=== PATIENT | female | born 1985 | race Caucasian/White ===

== ENCOUNTER → 2020-10-28 | Outpatient (CLI) | payer BC ==
[~2020-10-28] MED LIST: FRS325T PO; IBP600T1 PO; PREN1TAB39 PO
--- NOTE | 2020-10-28 17:56 | Diagnostic Imaging Report ---
PROCEDURE: US OB SINGLE FETUS <14 WKS. TECHNIQUE: Multiple real-time grayscale images were obtained over the gravid uterus in various projections. INDICATION: dating. COMPARISON: None. TECHNIQUE: Transpelvic sonogram was performed. FINDINGS: There is a single, live intrauterine with a crown-rump length measuring 2.48 cm, which is consistent with a 9 week and 2 day fetus. heart rate was documented at 174 beats per minute. anatomy is not well seen at this early state of gestation. No adnexal masses are identified. The bilateral ovaries were not visualized secondary to the gravid uterus and adjacent overlying bowel. No abnormal adnexal mass lesion was seen. IMPRESSION: Single, live intrauterine at 9 weeks and 2 days. Estimated due date is 05/31/2021. These are consistent with the clinical dates. No abnormality is seen at this time. Recommend a full anatomic survey at 18-20 weeks gestational age. Dictated by: Dictated on workstation # [id number]
== END ==
LOC: RAD 14:58
PROVIDERS: ATTEND Obstetrics & Gynecology
DX: Z34.91 Encounter for supervision of normal pregnancy, unspecified, first trimester (principal); Z3A.09 9 weeks gestation of pregnancy
CPT/HCPCS: 76801

== ENCOUNTER → 2021-01-10 | Outpatient (CLI) | payer BC ==
--- NOTE | 2021-01-10 17:10 | Diagnostic Imaging Report ---
INDICATION: 35-year-old female, 19 weeks 5 days TECHNIQUE: Multiple real-time grayscale images were obtained over the gravid uterus. COMPARISON: 10/28/2020 FINDINGS: There is a single live intrauterine gestation in cephalic presentation. The placenta is posterior, without evidence of previa. The cervix is partially shadowed out, but measures 5.2 cm in length and there is no evidence of funneling or endocervical fluid. heart rate measures 136 BPM. The amniotic fluid appears subjectively normal, with a vertical pocket seen measuring 5 cm. A four-chamber heart is seen. The cord insertion is seen. 2 umbilical arteries are demonstrated, consistent with a three-vessel cord. The bladder is seen. Bilateral upper extremities are seen. Bilateral lower extremities are seen. The kidneys are seen. The cerebellum and cisterna magna are seen. The upper and lower spine is seen. The right and left ventricular outflow tracks are seen. The lateral ventricles are seen. The profile is seen. Biometrical measurements are as follows: Biparietal 4.31 cm, age 19 weeks 1 days. Head circumference 16.85 cm, age 19 weeks 4 days. Abdominal circumference 15.84 cm, age 21 weeks 0 days. Femur length 3.40 cm, age 20 weeks 5 days. Sonographic estimate age: 20 weeks 1 days. Sonographic estimated date of delivery: 05/29/21. Estimated Weight: 367 gm (+/- 54 gm). LMP percentile: 91%. heart rate: 136 beats per minute. number: 1 of 1. IMPRESSION: 1. Single live intrauterine gestation measuring at 20 weeks and 1 day, which is within range of the clinical dates. 2. No abnormality seen on anatomic survey. Dictated by: Dictated on workstation # [id number]
== END ==
LOC: RAD 14:45
PROVIDERS: ATTEND Obstetrics & Gynecology
DX: Z34.92 Encounter for supervision of normal pregnancy, unspecified, second trimester (principal); Z3A.20 20 weeks gestation of pregnancy
CPT/HCPCS: 76805

== ENCOUNTER 2021-05-26 02:40 | Inpatient (IN) | payer BC, OTHER ==
[2021-05-26] VITALS (47 sets, daily range): BP systolic 92–155; BP diastolic 51–91
[2021-05-26] MEDS ORDERED: D5 LR IV SOLUTION 1,000 ML IV ONE (07:42)
[2021-05-26] MEDS ORDERED: OXYTOCIN PRE-MIX DRIP 500 ML IV SCH ×2 (07:45→16:15)
[2021-05-26] MEDS ORDERED: MINERAL OIL 30 ML OIL TOP PRN (07:45)
[2021-05-26] MEDS: D5 LR IV SOLUTION 1,000 ML IV SCH ×2 (07:58→15:35)
--- NOTE | 2021-05-26 08:15 | History & Physical-OB/GYN ---
[facility] 05/26/21 0815: OB - Chief Complaint & HPI Date/Time Date of Admission: Date of Admission: May 26, 2021 at 07:05 Date seen by a Provider: May 26, 2021 Time Seen by a Provider: 08:10 Chief Complaint/History OB-Reason for Admission/Chief: Induction of Labor Hx : 3 Hx Para: 2 Gestational Age in Weeks: 39 Indication for induction: other (Maternal Age) Allergies and Home Medications Allergies Coded Allergies: No Known Drug Allergies (Verified Allergy, Unknown, 07/05/07) Patient Home Medication List Home Medication List Reviewed: Yes Ferrous Sulfate (Iron) 325 Mg Tablet, 1 TAB PO DAILY, (Reported) Entered as Reported by: NEO KABA on 11/19/10 105 Vits W-Ca,Fe,Fa(<1MG) () 1 Each Tablet, 1 EACH PO DAILY, (Reported) Entered as Reported by: NEO KABA on 11/19/10 105 Discontinued Medications Ibuprofen (Motrin) 600 Mg Tab, 600 MG PO Q6H, (Reported) Entered as Reported by: NEO KABA on 11/19/10 105 Last Action: Discontinued OB - History Hx of Present Care: Yes Obstetrical History Hx : 3 Hx Para: 2 Hx # Term Pregnancies: 3 Number of Living Children: 2 Hx Termination: No Hx Multiple Gestation: No Hx Stillbirth: No Hx Complication: No Hx Induced Hypertens: Yes (both pregnancies) Hx Maternal Gestational Diabet: No Delivery History Hx Dystocia: No Hx Large For Gestational Age I: No Hx Small for Gestational Age I: No Hx Section: No Hx Vaginal Delivery Post C-Sec: No Hx Blood Disorders: No AREN GILLESPIE DO 05/26/21 0913: OB - Chief Complaint & HPI Chief Complaint/History Indication for induction: other (Maternal Age; gestational hypertension) Admission Nurse Assessment Rev: Yes History of Labs O+/- Rub NI HepBAg - HIV - GBS - VDRL NR Allergies and Home Medications Allergies Coded Allergies: No Known Drug Allergies (Verified Allergy, Unknown, 07/05/07) Patient Home Medication List Home Medication List Reviewed: Yes Ferrous Sulfate (Iron) 325 Mg Tablet, 1 TAB PO DAILY, (Reported) Entered as Reported by: NEO KABA on 11/19/10 1059 Vits W-Ca,Fe,Fa(<1MG) () 1 Each Tablet, 1 EACH PO DAILY, (Reported) Entered as Reported by: NEO KABA on 11/19/10 1059 Discontinued Medications Ibuprofen (Motrin) 600 Mg Tab, 600 MG PO Q6H, (Reported) Entered as Reported by: NEO KABA on 11/19/10 1059 Last Action: Discontinued OB - History Hx of Present Ultrasounds: Normal mid trimester US Obstetrical Complications: Gestational Hypertension Medical Complications: None Information Induced Hypertension: Yes Maternal Gestational Diabetes: No Hemorrhage: No Obstetrical History Hx Induced Hypertens: Yes Patient Past Medical History denies Social History/Family History Alcohol Use: Denies Use Recreational Drug Use: No Smoking Cessation: Never smoker Immunizations Tetanus Booster (TDap): Less than 5yrs (03/03/2022) Rubella: not immune RPR/VDRL: Negative GBS Status: Negative HBsAG: Negative OB - Admission Exam Physical Exam Heart: Rhythm Normal Lungs: Clear Abdomen: Gravid Extremities: Normal Reflexes: Normal Cervical Dilatation: 4cm Effacement: 50% Station: -2 Membranes: Intact Heart Rate: 140's Accelerations: Accelerations Present Decelerations: No Decelerations Short Term Variability: Present Long-Term Variability: Average (6-25) Contractions on Admission: 6-10 Minutes Apart OB - Assessment/Plan/Diagnosis Assessment Assessment: induction of labor Admission Dx labor Admission Status: Inpatient Order (span 2 midnights) Reason for Inpatient Admission: labor Plan Induction Method: AROM Other Plan Anticipate treat BP accordingly Supervisory-Addendum Brief Verification & Attestation Participated in pt care: history, physical Personally performed: exam Care discussed with: Medical Student Procedures: n/a I have seen and examined the patient and agree with assessment. [facility]AL[facility] STUDHARIKA May 26, 2021 08:15 AREN GILLESPIE DO May 26, 2021 09:13
[2021-05-26 08:49] LABS: BASOPHILS % (AUTO) 0 % (0-10); EOSINOPHILS # (AUTO) 0.1 10^3/uL (0.0-0.3); EOSINOPHILS % (AUTO) 1 % (0-10); HEMATOCRIT 33 % (35-52); HEMOGLOBIN 10.9 g/dL (11.5-16.0); LYMPHOCYTES # (AUTO) 1.6 10^3/uL (1.0-4.0); LYMPHOCYTES % (AUTO) 15 % (12-44); MEAN CORPUSCULAR HEMOGLOBIN 28 pg (25-34); MEAN CORPUSCULAR HGB CONC 33 g/dL (32-36); MEAN CORPUSCULAR VOLUME 85 fL (80-99); MEAN PLATELET VOLUME 10.8 fL (9.0-12.2); MONOCYTES # (AUTO) 0.5 10^3/uL (0.0-1.0); MONOCYTES % (AUTO) 5 % (0-12); NEUTROPHILS # (AUTO) 7.9 10^3/uL (1.8-7.8); NEUTROPHILS % (AUTO) 77 % (42-75); PLATELET COUNT 248 10^3/uL (130-400); WHITE BLOOD COUNT 10.3 10^3/uL (4.3-11.0)
[2021-05-26 09:07] LABS: BILIRUBIN,URINE NEGATIVE (NEGATIVE); CLARITY,URINE CLEAR; COLOR,URINE DARK YELLOW; GLUCOSE, URINE (UA) NEGATIVE (NEGATIVE); KETONES,URINE TRACE (NEGATIVE); LEUKOCYTE ESTERASE ,URINE NEGATIVE (NEGATIVE); NITRITE,URINE NEGATIVE (NEGATIVE); PROTEIN,URINE NEGATIVE (NEGATIVE)
[2021-05-26] MEDS: LACTATED RINGERS 1,000 ML IV SCH ×2 (09:21→11:23)
[2021-05-26 09:27] LABS: BACTERIA,URINE TRACE /HPF; SQUAMOUS EPITHELIAL CELL,UR 0-2 /HPF
[2021-05-26] MEDS ORDERED: fentaNYL 2 mcg/ml BUPIVA 0.125 100 ML ONE (10:31)
[2021-05-26] MEDS ORDERED: LACTATED RINGERS 1,000 ML IV ONE (10:32)
[2021-05-26] MEDS ORDERED: fentaNYL INJ 100 MCG/2 ML AMP ONE (10:34)
[2021-05-26] MEDS ORDERED: BUPIVACAINE 0.25% 10 ML (SENSORCAINE) VIAL ONE (10:35)
[2021-05-26] MEDS ORDERED: ONDANSETRON 4 MG/2 ML (SDV) Z0FRAN IV PRN (11:00)
[2021-05-26] MEDS ORDERED: diphenhydrAMINE 50 MG/ML INJ (BENADRYL) IV PRN (11:00)
[2021-05-26] MEDS ORDERED: NALOXONE 0.4 MG/ML 1 ML (NARCAN) VIAL IV PRN ×2 (11:00→16:15)
[2021-05-26] MEDS ORDERED: EPIDURAL (fentaNYL 2 MCG/ML BUPIVA 0.125%)100 ML BAG EPI PRN (11:00)
[2021-05-26] MEDS ORDERED: CATHETER FLUSH 10 ML SYR IV SCH ×2 (14:00→22:00)
[2021-05-26] MEDS ORDERED: MINERAL OIL CONCENTRATE 99.9% 15 ML UDC ONE (15:29)
--- NOTE | 2021-05-26 16:04 | OB Labor & Delivery Record ---
Vag Delivery Note Vag Delivery Note Date of Delivery: 05/26/21 Preoperative Diagnosis: Meka Anderson is a 35 /Para 3 / 2,Gestational Age 39 weeks, gestational hypertension Postoperative Diagnosis: Same Surgeon: AREN GILLESPIE Cabin Agent: Royal Coombs MS III Anesthesia: epidural Delivery Type: Findings: Viable male infant, apgars 6/9, weight 7#8 ounces Lacerations: 1st deg, periurethral Intact placenta with 3 vessel cord. No nuchal cord, body cord or shoulder dystocia. There was a true knot in the cord Estimated Blood Loss: 100 ml Complications: None Condition: Stable Description of Procedure: The patient is a 35 year old female who presented for induction of labor. BP on admission was 150s/90s. She was admitted and informed consent was obtained. Her labor course was remarkable for AROM (4+ cm on admission) and pitocin augmentation. She progressed to complete dilatation and began to push. She was then set up for delivery. The infant's head was delivered atraumatically in the MARIA LUISA position. The shoulders and remainder of the 's body were then delivered without difficulty. Upon delivery, the head was held below the level of the perineum and the mouth and nares were bulb suctioned. The cord was doubly clamped and cut and the infant was handed off to the pediatric staff. An intact placenta with 3-vessel cord delivered via Nicholas and there was found to be minimal bleeding.~ Vigorous fundal massage was performed and the fundus was found to be firm. IV oxytocin was given. Examination of the vagina and perineum revealed a 1st degree laceration and a periurethral laceration repaired in the usual fashion with 3-0 vicryl suture. Following the repair, sponge, instrument and needle counts were correct. Mom and baby were both in stable condition in the labor suite. Vitals - Labs Vital Signs - I&O Vital Signs Date Time Temp Pulse Resp B/P (MAP) Pulse Ox O2 Delivery O2 Flow Rate FiO2 05/26/21 13:45 95 18 116/73 (87) 92 Room Air 05/26/21 13:30 88 18 116/73 (87) 100 Room Air 05/26/21 13:15 36.0 93 18 126/71 (89) 99 Room Air 05/26/21 13:00 94 18 129/66 (87) 100 Room Air 05/26/21 12:45 88 18 115/67 (83) 100 Room Air 05/26/21 12:30 110 18 113/63 (80) 96 Room Air 05/26/21 12:15 105 18 115/64 (81) 99 Room Air 05/26/21 12:00 90 18 119/68 (85) 98 Room Air 05/26/21 11:45 99 18 124/66 (85) 99 Room Air 05/26/21 11:30 87 18 130/65 (86) 100 Room Air 05/26/21 11:15 90 18 132/73 (92) 100 Room Air 05/26/21 11:10 93 59 130/72 (91) 100 Room Air 05/26/21 11:05 103 59 123/72 (89) 99 Room Air 05/26/21 11:03 80 59 112/67 (82) Room Air 05/26/21 11:02 105 59 105/59 (74) Room Air 05/26/21 11:01 76 18 94/54 (67) 05/26/21 11:00 64 18 95/51 (66) Room Air 05/26/21 10:58 64 18 92/53 (66) 99 Room Air 05/26/21 10:54 116 18 140/65 (90) 99 Room Air 05/26/21 10:51 37.0 93 18 129/65 (86) 96 Room Air 05/26/21 10:47 91 18 141/73 (95) 98 Room Air 05/26/21 10:45 90 18 98 Room Air 05/26/21 10:44 86 18 145/81 (102) 98 Room Air 05/26/21 10:41 89 18 152/83 (106) 99 Room Air 05/26/21 10:39 86 18 145/82 (103) 98 Room Air 05/26/21 10:36 86 18 146/87 (106) 98 Room Air 05/26/21 10:35 18 Room Air 05/26/21 10:30 18 Room Air 05/26/21 10:15 18 Room Air 05/26/21 10:00 83 18 138/83 (101) Room Air 05/26/21 09:45 80 18 137/84 (101) Room Air 05/26/21 09:30 83 18 137/82 (100) Room Air 05/26/21 09:15 87 18 129/79 (96) Room Air 05/26/21 09:00 86 18 139/84 (102) Room Air 05/26/21 08:45 97 18 121/72 (88) Room Air 05/26/21 08:30 95 18 139/83 (101) Room Air 05/26/21 08:10 93 18 154/90 (111) Room Air 05/26/21 07:25 36.9 117 20 98 Room Air 05/26/21 07:25 36.9 117 20 146/91 (109) 98 Room Air Labs Laboratory Tests 05/26/21 07:51: White Blood Count 10.3, Red Blood Count 3.91, Hemoglobin 10.9L, Hematocrit 33L, Mean Corpuscular Volume 85, Mean Corpuscular Hemoglobin 28, Mean Corpuscular Hemoglobin Concent 33, Red Cell Distribution Width 14.2, Platelet Count 248, Mean Platelet Volume 10.8, Immature Granulocyte % (Auto) 1, Neutrophils (%) (Auto) 77H, Lymphocytes (%) (Auto) 15, Monocytes (%) (Auto) 5, Eosinophils (%) (Auto) 1, Basophils (%) (Auto) 0, Neutrophils # (Auto) 7.9H, Lymphocytes # (Auto) 1.6, Monocytes # (Auto) 0.5, Eosinophils # (Auto) 0.1, Basophils # (Auto) 0.0, Immature Granulocyte # (Auto) 0.1 05/26/21 08:00: Urine Color DARK YELLOW, Urine Clarity CLEAR, Urine pH 6.0, Urine Specific [place] >=1.030, Urine Protein NEGATIVE, Urine Glucose (UA) NEGATIVE, Urine Ketones TRACEH, Urine Nitrite NEGATIVE, Urine Bilirubin NEGATIVE, Urine Urobilinogen 0.2, Urine Leukocyte Esterase NEGATIVE, Urine RBC (Auto) NEGATIVE, Urine RBC NONE, Urine WBC NONE, Urine Squamous Epithelial Cells 0-2, Urine Crystals NONE, Urine Bacteria TRACE, Urine Casts NONE, Urine Mucus SMALLH, Urine Culture Indicated NO AREN GILLESPIE DO May 26, 2021 16:04
[2021-05-26] MEDS ORDERED: BENZOCAINE/MENTHOL (DERMOPLAST) 56 ML CAN TP PRN (16:15)
[2021-05-26] MEDS ORDERED: WITCH HAZEL(TUCKS) 40 EA JAR TOP PRN (16:15)
[2021-05-26] MEDS ORDERED: MEASLES,MUMPS,RUBELLA 1 EA INJ SQ ONE (16:15)
[2021-05-26] MEDS ORDERED: TETANUS,DIPTH,PERTUSS P/F (BOOSTRIX) 0.5 ML VIAL IM ONE (16:15)
[2021-05-26] MEDS: IBUPROFEN 600 MG (MOTRIN) TAB PO SCH ×2 (16:19→21:54)
[2021-05-26] MEDS: DOCUSATE SODIUM 100 MG (COLACE) CAP PO SCH (21:53)
[2021-05-26] MEDS ORDERED: ACETAMINOPHEN 500 MG TAB (TYLENOL) PO SCH (22:00)
[2021-05-27 04:37] VITALS: BP 139/83
[2021-05-27] MEDS: IBUPROFEN 600 MG (MOTRIN) TAB PO SCH ×3 (04:37→17:34)
[2021-05-27 05:46] LABS: BASOPHILS # (AUTO) 0.1 10^3/uL (0.0-0.1); BASOPHILS % (AUTO) 1 % (0-10); EOSINOPHILS # (AUTO) 0.3 10^3/uL (0.0-0.3); EOSINOPHILS % (AUTO) 3 % (0-10); HEMATOCRIT 33 % (35-52); HEMOGLOBIN 10.4 g/dL (11.5-16.0); LYMPHOCYTES # (AUTO) 1.5 10^3/uL (1.0-4.0); LYMPHOCYTES % (AUTO) 15 % (12-44); MEAN CORPUSCULAR HEMOGLOBIN 28 pg (25-34); MEAN CORPUSCULAR HGB CONC 31 g/dL (32-36); MEAN CORPUSCULAR VOLUME 90 fL (80-99); MONOCYTES # (AUTO) 0.7 10^3/uL (0.0-1.0); MONOCYTES % (AUTO) 7 % (0-12); NEUTROPHILS # (AUTO) 7.6 10^3/uL (1.8-7.8); NEUTROPHILS % (AUTO) 74 % (42-75); PLATELET COUNT 105 10^3/uL (130-400); WHITE BLOOD COUNT 10.2 10^3/uL (4.3-11.0)
[2021-05-27] MEDS ORDERED: PRENATAL VITAMIN 1 EA TAB PO SCH (07:00)
[2021-05-27] MEDS ORDERED: IBUP-844 PO (07:24)
[2021-05-27] MEDS ORDERED: ACET-93 PO (07:24)
--- NOTE | 2021-05-27 07:25 | Discharge Inst-Women's Service ---
Discharge Inst-Women's Serv Depart Medication/Instructions New, Converted or Re-Newed RX: Other (OTC) Final Diagnosis advanced maternal age gestational hypertension 39 week gestation Problems Reviewed?: Yes Consults/Follow Up Additional Follow Up: Yes (6 week post ) Activity Activity: Activity as Tolerated Driving Instructions: You May Drive NO SMOKING: NO SMOKING Nothing Inside Vagina: No Douching, No [place], No Tampons Diet Discharge Diet: No Restrictions Symptoms to Report to : Swelling Increased, Bleeding Excessive, Pain Increased, Fever Over 101 Degrees F, Vaginal Bleeding Increase, Cramps in Feet or Legs, Vaginal Discharge Foul For Any Problems or Questions: Contact Your Physician AREN GILLESPIE DO May 27, 2021 07:25
[2021-05-27 08:52] VITALS: BP 124/69
[2021-05-27] MEDS: DOCUSATE SODIUM 100 MG (COLACE) CAP PO SCH (08:53)
[2021-05-27] MEDS ORDERED: FERROUS SULF 325 MG (IRON) TAB PO SCH (09:00)
--- NOTE | 2021-05-27 09:07 | Postpartum Progress Note ---
Note Note Day # 1 s/p Subjective: Patient is without complaints. Ambulating, voiding. Tolerating a regular diet w ithout nausea or vomiting. Normal lochia. Pain is well controlled with oral pain medications. breast feeding. Objective: 05/26/21 05/27/21 05/27/21 21:52 04:37 08:52 Temp 36.8 36.8 37.0 Pulse 96 98 104 Resp 18 18 20 B/P (MAP) 124/71 (88) 139/83 (101) 124/69 (87) Pulse Ox 98 98 98 O2 Delivery Room Air Room Air Room Air 05/27/21 00:00 Intake Total 2000 ml Balance 2000 ml Laboratory Tests Test 05/27/21 05:25 Range/Units White Blood Count 10.2 4.3-11.0 10^3/uL Red Blood Count 3.67 L 3.80-5.11 10^6/uL Hemoglobin 10.4 L 11.5-16.0 g/dL Hematocrit 33 L 35-52 % Mean Corpuscular Volume 90 80-99 fL Mean Corpuscular Hemoglobin 28 25-34 pg Mean Corpuscular Hemoglobin Concent 31 L 32-36 g/dL Red Cell Distribution Width 14.6 H 10.0-14.5 % Platelet Count 105 L 130-400 10^3/uL Mean Platelet Volume 12.0 9.0-12.2 fL Immature Granulocyte % (Auto) 1 % Neutrophils (%) (Auto) 74 42-75 % Lymphocytes (%) (Auto) 15 12-44 % Monocytes (%) (Auto) 7 0-12 % Eosinophils (%) (Auto) 3 0-10 % Basophils (%) (Auto) 1 0-10 % Neutrophils # (Auto) 7.6 1.8-7.8 10^3/uL Lymphocytes # (Auto) 1.5 1.0-4.0 10^3/uL Monocytes # (Auto) 0.7 0.0-1.0 10^3/uL Eosinophils # (Auto) 0.3 0.0-0.3 10^3/uL Basophils # (Auto) 0.1 0.0-0.1 10^3/uL Immature Granulocyte # (Auto) 0.1 0.0-0.1 10^3/uL Physical Exam: General - Alert and oriented, no apparent distress Abdomen - Soft, appropriately tender to palpation, non-distended, fundus firm at umbilicus Extremities - no edema, negative Andrew's bilaterally Assessment: 1 post- day # 1, status post spontaneous vaginal delivery. Recovering well, hemodynamically stable Plan: Routine care. Encourage breast feeding. Encourage ambulation. Ferrous sulfate supplementation. Plan for discharge today or tomorrow Vitals - Labs Vital Signs - I&O Vital Signs Date Time Temp Pulse Resp B/P (MAP) Pulse Ox O2 Delivery O2 Flow Rate FiO2 05/27/21 08:52 37.0 104 20 124/69 (87) 98 Room Air 05/27/21 04:37 36.8 98 18 139/83 (101) 98 Room Air 05/26/21 21:52 36.8 96 18 124/71 (88) 98 Room Air 05/26/21 16:54 106 18 132/76 (94) Room Air 05/26/21 16:52 102 18 142/81 (101) Room Air 05/26/21 16:09 102 18 134/65 (88) Room Air 05/26/21 15:54 105 18 129/73 (91) Room Air 05/26/21 15:42 113 20 155/72 (99) Room Air 05/26/21 15:30 84 20 148/79 (102) 100 Room Air 05/26/21 15:15 84 18 140/76 (97) 100 Room Air 05/26/21 15:00 85 18 123/73 (90) 100 Room Air 05/26/21 14:45 72 18 131/74 (93) 100 Room Air 05/26/21 14:30 77 18 124/67 (86) 100 Room Air 05/26/21 14:15 83 18 118/63 (81) 100 Room Air 05/26/21 14:00 95 18 116/73 (87) 100 Room Air 05/26/21 13:45 95 18 116/73 (87) 92 Room Air 05/26/21 13:30 88 18 116/73 (87) 100 Room Air 05/26/21 13:15 36.0 93 18 126/71 (89) 99 Room Air 05/26/21 13:00 94 18 129/66 (87) 100 Room Air 05/26/21 12:45 88 18 115/67 (83) 100 Room Air 05/26/21 12:30 110 18 113/63 (80) 96 Room Air 05/26/21 12:15 105 18 115/64 (81) 99 Room Air 05/26/21 12:00 90 18 119/68 (85) 98 Room Air 05/26/21 11:45 99 18 124/66 (85) 99 Room Air 05/26/21 11:30 87 18 130/65 (86) 100 Room Air 05/26/21 11:15 90 18 132/73 (92) 100 Room Air 05/26/21 11:10 93 59 130/72 (91) 100 Room Air 05/26/21 11:05 103 59 123/72 (89) 99 Room Air 05/26/21 11:03 80 59 112/67 (82) Room Air 05/26/21 11:02 105 59 105/59 (74) Room Air 05/26/21 11:01 76 18 94/54 (67) 05/26/21 11:00 64 18 95/51 (66) Room Air 05/26/21 10:58 64 18 92/53 (66) 99 Room Air 05/26/21 10:54 116 18 140/65 (90) 99 Room Air 05/26/21 10:51 37.0 93 18 129/65 (86) 96 Room Air 05/26/21 10:47 91 18 141/73 (95) 98 Room Air 05/26/21 10:45 90 18 98 Room Air 05/26/21 10:44 86 18 145/81 (102) 98 Room Air 05/26/21 10:41 89 18 152/83 (106) 99 Room Air 05/26/21 10:39 86 18 145/82 (103) 98 Room Air 05/26/21 10:36 86 18 146/87 (106) 98 Room Air 05/26/21 10:35 18 Room Air 05/26/21 10:30 18 Room Air 05/26/21 10:15 18 Room Air 05/26/21 10:00 83 18 138/83 (101) Room Air 05/26/21 09:45 80 18 137/84 (101) Room Air 05/26/21 09:30 83 18 137/82 (100) Room Air 05/26/21 09:15 87 18 129/79 (96) Room Air I & O 05/27/21 07:00 Intake Total 3500 ml Balance 3500 ml Labs Laboratory Tests 05/27/21 05:25: White Blood Count 10.2, Red Blood Count 3.67L, Hemoglobin 10.4L, Hematocrit 33L, Mean Corpuscular Volume 90, Mean Corpuscular Hemoglobin 28, Mean Corpuscular Hemoglobin Concent 31L, Red Cell Distribution Width 14.6H, Platelet Count 105L, Mean Platelet Volume 12.0, Immature Granulocyte % (Auto) 1, Neutrophils (%) (Auto) 74, Lymphocytes (%) (Auto) 15, Monocytes (%) (Auto) 7, Eosinophils (%) (Auto) 3, Basophils (%) (Auto) 1, Neutrophils # (Auto) 7.6, Lymphocytes # (Auto) 1.5, Monocytes # (Auto) 0.7, Eosinophils # (Auto) 0.3, Basophils # (Auto) 0.1, Immature Granulocyte # (Auto) 0.1 AREN GILLESPIE DO May 27, 2021 09:07
--- NOTE | 2021-05-27 10:52 | Anesthesia-Regional Post-Op ---
Regional Patient Condition Mental Status: Alert, Oriented x3 Circulation: Same as Pre-Op Headache: Absent Sensation: Full Recovery Motor Block: Absent Post Op Complications Complications None Follow Up Care/Instructions Patient Instructions None needed. Anesthesia/Patient Condition Patient is doing well, no complaints, stable vital signs, no apparent adverse anesthesia problems. FRANCESCA PIERCE DO May 27, 2021 10:52
[2021-05-27 11:53] VITALS: BP 141/78
[2021-05-27 15:57] VITALS: BP 137/77
== END 2021-05-27 18:00 | disposition home or self-care (01) | DRG 807 ==
LOC: LDRP 07:05
PROVIDERS: ADMIT Obstetrics & Gynecology; ATTEND Obstetrics & Gynecology
PROC: 10E0XZZ Delivery of Products of Conception, External Approach (ICD-10-PCS; principal; 2021-05-26)
PROC: 10907ZC Drainage of Amniotic Fluid, Therapeutic from Products of Conception, Via Natural or Artificial Opening (ICD-10-PCS; 2021-05-26)
PROC: 0HQ9XZZ Repair Perineum Skin, External Approach (ICD-10-PCS; 2021-05-26)
PROC: 0UQMXZZ Repair Vulva, External Approach (ICD-10-PCS; 2021-05-26)
DX: O13.4 Gestational [pregnancy-induced] hypertension without significant proteinuria, complicating childbirth (principal); Z37.0 Single live birth; Z3A.39 39 weeks gestation of pregnancy; O70.0 First degree perineal laceration during delivery; O71.82 Other specified trauma to perineum and vulva
CPT/HCPCS: 36415; 81000; 85025; 86850; 86900; 86901; 87088; 90707